=== PATIENT | female | born 1940 | race Caucasian/White ===

== ENCOUNTER 2017-09-06 10:31 | Emergency (ER) | payer MEDICARE ==
--- NOTE | 2017-09-06 10:51 | ED.PDOC ---
History of Present Illness - General Chief Complaint: Abdominal Pain Stated Complaint: frequent burping/abdominal pain Time Seen by Provider: 09/06/17 10:33 Information Source: patient - History of Present Illness Initial Comments: Lorene Dykes 76 y/o female came to ER with frequent burping and burning epigastric pain 3 days which comes and go unable to eat Tuesday since symptoms been constant then was little better tuesday and ate a meal but burping continued and had numerous bowel movement but no diarrhea and one episode of vomiting today.Also took a dose of Tums but not better. Abdominal Pain Onset Location: epigastric Pain Radiation: no radiation Quality: burning Timing/Duration: other - 3 days Improving Factors: nothing Worsening Factors: nothing Associated Symptoms: nausea/vomiting Review of Systems - Review of Systems Constitutional: States: no symptoms reported EENTM: States: no symptoms reported Respiratory: States: no symptoms reported Cardiology: States: no symptoms reported Gastrointestinal/Abdominal: States: see HPI Musculoskeletal: States: no symptoms reported Skin: States: no symptoms reported Neurological: States: no symptoms reported All other Systems: Reviewed and Negative, No Change from Baseline Past Medical History (General) - Patient Medical History Hx Seizures: No Hx Stroke: No Hx Dementia: No Hx Cardiac Disorders: No Surgical History: other - hysterectomy - Social History Hx Alcohol Use: No Hx Substance Use: No Hx Physical Abuse: No Hx Emotional Abuse: No - Activities of Daily Living Grooming Ability: Independent Eating (Feeding) Ability: Independent Toileting Ability: Independent - Female History Patient : No Family Medical History - Family History Father Family History: Unknown Living Status: Age at (years of age): 69 Cause of : [place] Hx Family Asthma: No Hx Family Congestive Heart Failure: Yes Hx Cardiac Disease: Yes Physical Exam - Physical Exam General Appearance: Agitated, Comfortable, No apparent distress Eyes, Ears, Nose, Throat Exam: normal ENT inspection, pharynx normal Neck: non-tender, full range of motion, supple Respiratory: lungs clear, normal breath sounds, no respiratory distress Cardiovascular/Chest: normal peripheral pulses, regular rate, rhythm, no murmur Peripheral Pulses: No deficit Gastrointestinal/Abdominal: soft, no organomegaly, tenderness - ruq positive murphys,no peritoneal signs Back Exam: no CVA tenderness, no vertebral tenderness Extremity: no pedal edema, no calf tenderness Neurologic: alert, oriented x 3 Skin Exam: normal color, warm/dry Progress - Progress Progress: 09/06/17 11:20 Vital Signs - 24 hr 09/06/17 10:47 Temperature 99.8 F H Pulse Rate [ 92 H Left Brachial] Respiratory 16 Rate Blood Pressure 158/84 [Left Arm] O2 Sat by Pulse 100 Oximetry 09/06/17 15:44 D/W Dr. May-Surgeon and Dr. Sevilla -hospitalist for transfer - Results/Orders Results/Orders: Laboratory Results - last 24 hr 09/06/17 09/06/17 11:26 11:30 WBC 7.1 RBC 4.29 Hgb 13.0 Hct 38.7 MCV 90.1 MCH 30.4 MCHC 33.7 RDW 13.5 Plt Count 193 MPV 9.8 Absolute Neuts (auto) 6.00 Absolute Lymphs (auto) 0.40 L Absolute Monos (auto) 0.60 Absolute Eos (auto) 0.00 Absolute Basos (auto) 0.00 Neutrophils % 84.9 H Lymphocytes % 6.0 L Monocytes % 8.7 Eosinophils % 0.0 L Basophils % 0.4 PT 11.8 INR 1.020 PTT (SP) 24.2 L Sodium 138 Potassium 4.1 Chloride 102 Carbon Dioxide 28 Anion Gap 12.1 BUN 21 H Creatinine 0.70 BUN/Creatinine Ratio 30.0 H Random Glucose 151 H Serum Osmolality 281.6 Calcium 9.3 Magnesium 1.7 L Total Bilirubin 3.1 H* Direct Bilirubin 1.4 H Indirect Bilirubin 1.7 H AST 1338 H ALT 632 H Alkaline Phosphatase 321 H Creatine Kinase 39 CK-MB (CK-2) 2.0 CK-MB (CK-2) % Not Reportable Troponin I < 0.02 Serum Total Protein 6.9 Albumin 3.7 Lipase 20 L Urine Color Cancelled Urine Appearance Cancelled Urine pH Cancelled Ur Specific [place] Cancelled Urine Protein Cancelled Urine Glucose (UA) Cancelled Urine Ketones Cancelled Urine Blood Cancelled Urine Nitrite Cancelled Urine Bilirubin Cancelled Urine Urobilinogen Cancelled Ur Leukocyte Esterase Cancelled Urine RBC Cancelled Urine WBC Cancelled Ur Epithelial Cells Cancelled Ur Squamous Epith Cells Cancelled Ur Transition Epith Cell Cancelled Ur Renal Epithelial Cell Cancelled Calcium Oxalate Crystal Cancelled Uric Acid Crystals Cancelled Triple Phos Crystals Cancelled Other Crystals Cancelled Amorphous Sediment Cancelled Urine Bacteria Cancelled Hyaline Casts Cancelled Fine Granular Casts Cancelled Coarse Granular Casts Cancelled Waxy Casts Cancelled RBC Casts Cancelled WBC Casts Cancelled Other Casts Cancelled Urine Mucus Cancelled Urine Other Cancelled Urine Trichomonas Cancelled Urine Yeast Cancelled Urine Sperm Cancelled Ur Oval Fat Bodies Cancelled - EKG/XRAY/CT XRAY: chest - no acute abnormalities Xray Comments: abdominal sono-acute calculus cholecystitis,suspected choledocholithiasis Departure - Departure Clinical Impression: Cholecystitis, acute with cholelithiasis Qualifiers: Cholelithiasis location: gallbladder Biliary obstruction: with biliary obstruction Qualified Code(s): K80.01 - Calculus of gallbladder with acute cholecystitis with obstruction Abdominal pain Qualifiers: Abdominal location: upper abdomen, unspecified Qualified Code(s): R10.10 - Upper abdominal pain, unspecified Time of Disposition: 15:46 Disposition: Transfer to Hospital Condition: Fair Departure Forms: Patient Portal Self Enrollment Instructions: DI for Abdominal Pain-Adult Referrals: Brett Echols III, MD [Active Staff] - 1-2 Weeks Home Medications: Ambulatory Orders NK [NK] 09/06/17 Transfer to Outside Facility - Transfer Information Accepting Provider:: Dr. Sevilla-Hospitalist Accepting Facility: 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
[2017-09-06] MEDS ORDERED: SODIUM CHLORIDE 0.9% 500ML 500 ML IVS ONE (11:20)
[2017-09-06] MEDS ORDERED: ONDANSETRON INJ 4 MG/2 ML VIAL IV ONE (11:20)
[2017-09-06] MEDS ORDERED: PANTOPRAZOLE SODIUM IV 40 MG VIAL IV ONE (11:21)
--- NOTE | 2017-09-06 11:48 | RAD ---
EXAM DESCRIPTION: Chest,1 View CLINICAL HISTORY: EPIGASTRIC PAIN COMPARISON: April 13, 2011 IMPRESSION: Single AP portable upright view of the chest shows cardiac silhouette and pulmonary vasculature to be within normal limits. Lungs are hyperinflated without acute appearing infiltrate or consolidation. No obvious pleural effusion or pneumothorax is seen. Electronically signed by: Tuan Meyer MD 09/06/2017 11:47 AM CDT
--- NOTE | 2017-09-06 13:36 | US ---
EXAM DESCRIPTION: Abdomen,Complete CLINICAL HISTORY: EPIGASTRIC PAIN,BELCHING COMPARISON: None Available. TECHNIQUE: Complete abdominal ultrasound FINDINGS: The liver is normal in appearance. There is no focal hepatic mass. Multiple small gallstones are present in the gallbladder. Gallbladder wall thickened measuring 3.7 mm. Positive sonographic Vega's sign. The common bile duct is dilated measuring up to 10 mm. The pancreas and the spleen are unremarkable. The kidneys are normal in size, shape, and echotexture. The IVC and the proximal aorta are unremarkable. IMPRESSION: 1. Acute calculus cholecystitis. Suspected choledocholithiasis. Electronically signed by: Alf Ernandez MD 09/06/2017 1:35 PM CDT
[2017-09-06 17:32] VITALS: BP 140/60; TEMP 101.9; O2SAT 99
== END 2017-09-06 17:45 | disposition short-term general hospital (02) ==
LOC: ER 10:31
DX: K80.01 Calculus of gallbladder with acute cholecystitis with obstruction (principal)
CPT/HCPCS: 36415; 71045; 76700; 80048; 80076; 81001; 82550; 82553; 83690; 84484; 85025; 85610; 85730; J2405; J7040

== ENCOUNTER 2018-09-13 16:36 | Emergency (ER) | payer MEDICARE, OTHER ==
--- NOTE | 2018-09-13 17:28 | RAD ---
EXAM: XR Left Knee, 1 or 2 views CLINICAL HISTORY: 77 years old and is Female; fall ant knee pain TECHNIQUE: Frontal and/or lateral views of the left knee. COMPARISON: No relevant prior studies available. FINDINGS: Limitations: None. Bones/joints: There is an acute, comminuted fracture of the inferior patella. Small joint effusion. No dislocation. Soft tissues: Anterior soft tissues is present. IMPRESSION: There is an acute, comminuted fracture of the inferior patella. Electronically signed by: Maren Taylor MD 09/13/2018 5:26 PM CDT
--- NOTE | 2018-09-13 18:41 | CT ---
EXAM DESCRIPTION: CT Lower Extremity CLINICAL HISTORY: 77 years Female eval patellar fracture TECHNIQUE: Noncontrast axial images acquired through the left knee. Coronal and sagittal reformatted images also provided. This CT exam was performed according to our departmental dose-optimization program, which includes one or more of the following dose reduction techniques: automated exposure control, adjustment of the mA and/or kV according to patient size, and/or use of iterative reconstruction technique. COMPARISON: Comparison is made with the radiographs obtained earlier the same day. FINDINGS: Again seen is a prominent subcutaneous hematoma superficial to the patella. There is an acute, comminuted patellar fracture which is predominantly transverse in orientation. There is 6 mm of distraction at the major fracture site. Fracture lines do extend to the articular surfaces of both the medial and lateral patellar facet inferiorly. No patellar dislocation. No other left knee fracture. Large lipohemarthrosis without abnormal soft tissue gas or foreign body. IMPRESSION: Acute, comminuted, intra-articular left patellar fracture with 6 mm of distraction at the major fracture site. No patellar dislocation. Large lipohemarthrosis. No soft tissue gas or other left knee fracture. Electronically signed by: Beatriz Stevens MD 09/13/2018 6:39 PM CDT
[2018-09-13 18:54] VITALS: TEMP 97.8
--- NOTE | 2018-09-13 19:07 | ED.PDOC ---
History of Present Illness - General Chief Complaint: Trauma Stated Complaint: Pt fell at work and hurt her left knee Time Seen by Provider: 09/13/18 16:54 Source: patient Exam Limitations: no limitations - History of Present Illness Initial Comments: the patient is a 77-year-old female presenting to the emergency room secondary to a fall that occurred at work. She slipped and fell forward and hit her left knee on concrete. There is a significant hematoma forming. She has mild abrasion but no deep laceration. No other areas of significant injury. She is alert pleasant and cooperative. she is able to hold the leg up off the bed briefly but with very significant pain. No pain elsewhere around the knee.she does appear to be neurovascularly intact distally. Timing/Duration: momentarily Severity: severe Improving Factors: immobilization Worsening Factors: movement Associated Symptoms: denies symptoms Allergies/Adverse Reactions: Allergies Iodine Allergy (Verified 09/13/18 17:10) Home Medications: Ambulatory Orders Tramadol HCl 50 mg PO Q8HR PRN #20 tab 09/13/18 Review of Systems - Review of Systems Constitutional: States: no symptoms reported EENTM: States: no symptoms reported Respiratory: States: no symptoms reported Cardiology: States: no symptoms reported Gastrointestinal/Abdominal: States: no symptoms reported Genitourinary: States: no symptoms reported Musculoskeletal: States: see HPI Skin: States: no symptoms reported Neurological: States: no symptoms reported Endocrine: States: no symptoms reported All other Systems: No Change from Baseline Past Medical History (General) - Patient Medical History Hx Seizures: No Hx Stroke: No Hx Dementia: No Hx of COPD: No Hx Cardiac Disorders: No Hx Congestive Heart Failure: No Hx Hypertension: No Hx Diabetes: No Surgical History: cholecystectomy, Hysterectomy - Vaccination History Hx Tetanus, Diphtheria Vaccination: No Hx Influenza Vaccination: No Hx Pneumococcal Vaccination: No - Social History Hx Tobacco Use: No Hx Alcohol Use: Yes - Rarely Hx Substance Use: No Hx Substance Use Treatment: No Hx Depression: No Hx Physical Abuse: No Hx Emotional Abuse: No - Female History Patient is a Female of Child Bearing Age (10 -59 yrs old): No Patient : No Family Medical History - Family History Father Family History: Unknown Living Status: Age at (years of age): 69 Cause of : [place] Hx Family Asthma: No Hx Family Congestive Heart Failure: Yes Hx Cardiac Disease: Yes Physical Exam - Physical Exam General Appearance: Alert, No apparent distress Eye Exam: bilateral normal Ears, Nose, Throat: hearing grossly normal, normal ENT inspection Neck: full range of motion, supple Respiratory: normal breath sounds, no respiratory distress Cardiovascular/Chest: normal peripheral pulses, no edema Peripheral Pulses: dorsalis pedis,right: 2+, dorsalis pedis,left: 2+, posterior tibialis,right: 2+, posterior tibialis,left: 2+ Gastrointestinal/Abdominal: non tender, soft Rectal Exam: deferred Back Exam: no CVA tenderness, no vertebral tenderness Extremity: no pedal edema, no calf tenderness, normal capillary refill, swelling, other - see history of present illness 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 This is depicted by plain x-ray and then CT scan for further delineation of the injury. The underside of the patella appears fairly smooth still and her patellar tibial mechanism appears to be intact at this point. Based on this, I believe there is a good chance that she will not end up having to have surgery. The patient does however need to follow-up with orthopedics in the next couple of days for a repeat evaluation, and a second opinion. In the meantime she is going to be using a knee immobilizer and crutches to get around. She can rest the straight leg on the ground but she is not to bear significant weight or bend the leg, else she risk further distracting the fracture fragments. She will be written for some tramadol for as needed use and she can use ibuprofen as needed as well. ER warnings were given. Departure - Departure Clinical Impression: Comminuted fracture of left patella Qualifiers: Encounter type: initial encounter Fracture type: closed Fracture alignment: nondisplaced Qualified Code(s): S82.045A - Nondisplaced comminuted fracture of left patella, initial encounter for closed fracture Disposition: Discharge to Home or Self Care Condition: Fair Departure Forms: ED Discharge - Pt. Copy, Patient Portal Self Enrollment Diet: regular diet Activity: no pushing/pulling with affected limb Prescriptions: Tramadol HCl 50 mg PO Q8HR PRN #20 tab PRN Reason: Moderate To Severe Pain Home Medications: Ambulatory Orders Tramadol HCl 50 mg PO Q8HR PRN #20 tab 09/13/18 Additional Instructions: the patient is a 77-year-old female presenting to the emergency room after a fall at work where she sustained a comminuted patellar fracture that is closed on the left. This is depicted by plain x-ray and then CT scan for further delineation of the injury. The underside of the patella appears fairly smooth still and her patellar tibial mechanism appears to be intact at this point. Based on this, I believe there is a good chance that she will not end up having to have surgery. The patient does however need to follow-up with orthopedics in the next couple of days for a repeat evaluation, and a second opinion. In the meantime she is going to be using a knee immobilizer and cru tches to get around. She can rest the straight leg on the ground but she is not to bear significant weight or bend the leg, else she risk further distracting the fracture fragments. she does need to be careful getting around with the crutches and the straight leg, as it will be easy to fall with this and injure the leg further. She will be written for some tramadol for as needed use and she can use ibuprofen as needed as well. ER warnings were given.
[2018-09-13 20:03] VITALS: BP 148/85; O2SAT 97
== END 2018-09-13 20:07 | disposition home or self-care (01) ==
LOC: ER 16:36
DX: S82.045A Nondisplaced comminuted fracture of left patella, initial encounter for closed fracture (principal); S80.812A Abrasion, left lower leg, initial encounter; W01.0XXA Fall on same level from slipping, tripping and stumbling without subsequent striking against object, initial encounter; Y99.0 Civilian activity done for income or pay; Y92.69 Other specified industrial and construction area as the place of occurrence of the external cause; Z91.041 Radiographic dye allergy status